=== PATIENT | female | born 1990 | race Caucasian/White ===

== ENCOUNTER 2021-09-18 14:16 | Outpatient (CLI) | payer SELFPAY ==
--- NOTE | 2021-09-18 15:17 | XRR_ITS ---
PROCEDURE INFORMATION: Exam: XR Lumbosacral Spine Exam date and time: 09/18/2021 3:17 PM Age: 31 years old Clinical indication: Low back pain; Patient HX: HX of leukemia; Additional info: Lumbosacral pain TECHNIQUE: Imaging protocol: XR of the lumbosacral spine. Views: 2 or 3 views. COMPARISON: No relevant prior studies available. FINDINGS: Bones/joints: There is mild narrowing of the L5-S1 disc space. Otherwise no significant abnormality is seen in the lumbar spine. Soft tissues: Unremarkable. Organs: Multiple calcifications project on the left kidney. XR/XR lumbar spine 2-3V* [id number] IMPRESSION: 1. Mild degenerative narrowing of the L5-S1 disc space. 2. Multiple calcifications project on the left kidney.
== END 2021-09-18 14:17 | disposition home or self-care (01) ==
LOC: RAD 14:21
PROVIDERS: PCP Registered Nurse; Visit Provider Registered Nurse
DX: M47.897 Other spondylosis, lumbosacral region (principal); N28.89 Other specified disorders of kidney and ureter
CPT/HCPCS: 72100